=== PATIENT | male | born 1980 | race Caucasian/White ===

== ENCOUNTER 2018-08-30 12:13 | Emergency (ER) | payer MEDICAID, SELFPAY ==
[2018-08-30 12:20] VITALS: BP 128/85; PULSE 62; RESP 20; TEMP 37; O2SAT 96
--- NOTE | 2018-08-30 12:34 | ED.GENADUL_ITS ---
Discharge Plan Disposition Patient Disposition: HOME Condition: Improving Discharge Details Chief Complaint: AnimalBite Clinical Impression: Tick bite Primary Care Provider: Daniele Martinez ED Provider: Jesus Hannah Home Meds and New Rx's Prescriptions: New doxycycline hyclate 100 mg capsule 100 mg PO BID 10 Days Qty: 20 RF: 0 Continued Buprenorphine/Naloxone [Suboxone 12 MG-3 MG SL FILM] 1 EACH Film 16 mg Sublingual DAILY RF: 0 ibuprofen 600 MG tablet 600 mg PO Q8H PRNQty: 15 RF: 0 dexmethylphenidate [Focalin] 10 mg Tablet 40 DAILY RF: 0 Discharge Instructions Instructions: Tick Bite (ED) Additional Instructions: Resume routine care and daily soap and water cleansing. Please take doxycycline as prescribed for 10 days time. Return for any acute concern Medical Decision Making 38-year-old male presents with an engorged tick on his right scrotum that he believes was present since yesterday. He is otherwise well-appearing in no acute distress. Tick removed. Will place on doxycycline. He is stable for discharge home at this time HPI General Mode of arrival: ambulatory . Date/Time Provider Initiated Documentation: 08/30/18 12:15 . Limitations to Documentation: no limitations . Information obtained by: patient . History of Present Illness 38 year old M presents to the emergency department with the chief complaint of Right testicular tic with engorgement x1 day, described as moderate, Quality is described as dull, and is localized to the genitals and right. Patient reports no radiation. Patient started experiencing this hour(s) and it has been constant. No relieving factors improve symptom(s), Patient notes no other symptoms.. Patient did receive the following treatments prior to arrival, none Related Data Home Medications Medication Instructions Recorded Confirmed Buprenorphine/Naloxone [Suboxone 16 mg SUBLINGUAL DAILY 04/06/17 08/30/18 12 MG-3 MG SL FILM] ibuprofen 600 mg PO Q8H PRN #15 tab 11/26/17 08/30/18 dexmethylphenidate [Focalin] 40 DAILY 08/30/18 doxycycline hyclate 100 mg PO BID 10 Days #20 cap 08/30/18 Previous Rx's Medication Instructions Recorded ibuprofen 600 mg PO Q8H PRN #15 tab 11/26/17 doxycycline hyclate 100 mg PO BID 10 Days #20 cap 08/30/18 Allergies Allergy/AdvReac Type Severity Reaction Status Date / Time venom-honey bee Allergy Severe Anaphylaxsi Unverified 04/06/17 16:17 [bee venom (honey bee)] s General Stated Complaint: AnimalBite CAMILA: 4 Review of Systems Review of Systems 6 systems reviewed and otherwise neg [facility] Social History Smoking/Tobacco Use Status: Current every day Drug use: Occasionally Do you feel safe in your relationship?: Yes Exam Narrative Exam Narrative: GEN: awake, alert, oriented 3. Pleasant, well groomed, interactive. HEAD: Normocephalic, atraumatic : Unremarkable testicular exam. There is an engorged tick present on the lower portion of the right scrotum. EXT: Full ROM, no edema, no rash Neuro: Grossly normal neurologic exam, conversant, interactive. Psych: Speech fluent, thoughts congruent, affect normal Course Vital Signs Temperature 37.0 C 08/30/18 12:20 Pulse 62 08/30/18 12:20 Respiratory Rate 20 08/30/18 12:20 Blood Pressure 128/85 08/30/18 12:20 Pulse Oximetry 96 08/30/18 12:20 Temperature 37.0 C 08/30/18 12:20 Pulse 62 08/30/18 12:20 Respiratory Rate 20 08/30/18 12:20 Blood Pressure 128/85 08/30/18 12:20 Blood Pressure Position Sitting 08/30/18 12:20 Pulse Oximetry 96 08/30/18 12:20 Oxygen Delivery Method Room Air 08/30/18 12:20 Oxygen Flow Rate 0 08/30/18 12:20
== END 2018-08-30 12:46 | disposition home or self-care (01) ==
PROVIDERS: Emergency Provider Emergency Medicine; PCP General Practice
DX: S30.863A Insect bite (nonvenomous) of scrotum and testes, initial encounter (principal); W57.XXXA Bitten or stung by nonvenomous insect and other nonvenomous arthropods, initial encounter
CPT/HCPCS: 99283

== ENCOUNTER 2019-07-01 12:55 | Emergency (ER) | payer MEDICAID, SELFPAY ==
--- NOTE | 2019-07-01 13:00 | DI.RAD_ITS ---
EXAM: XR WRIST RT COMPLETE INDICATION: Pinned between crowbar and engine block. COMPARISON: No exams were available for comparison TECHNIQUE: 2D digital imaging was performed. FINDINGS: No fracture or dislocation is seen. IMPRESSION: Negative right wrist. DATA REPOSITORY: RADIATION DOSE DELIVERED:
[2019-07-01 13:01] VITALS: BP 123/97; PULSE 71; RESP 16; TEMP 36.7; O2SAT 97
--- NOTE | 2019-07-01 13:37 | ED.GENADUL_ITS ---
Discharge Plan Disposition Patient Disposition: HOME Condition: Stable Discharge Details Chief Complaint: Orthopedic Clinical Impression: Injury of wrist Primary Care Provider: None,None ED Provider: Lee Childs Home Meds and New Rx's Prescriptions: Continued Buprenorphine/Naloxone [Suboxone 12 MG-3 MG SL FILM] 1 EACH Film 16 mg Sublingual DAILY RF: 0 ibuprofen 600 MG tablet 600 mg PO Q8H PRNQty: 15 RF: 0 dexmethylphenidate [Focalin] 10 mg Tablet 40 DAILY RF: 0 Discharge Instructions Instructions: Wrist Injury (ED) Additional Instructions: X-ray is negative. Rest, elevate, cool compresses every 2 hours for 20 minutes. [id number] medications as directed for discomfort. Wear splint as needed, advance activity as tolerated. Please watch for new or worsening symptoms and return to the ER for any concerns. I do recommend reaching out to your primary care provider later today or tomorrow for prompt outpatient reevaluation, if symptoms persist outpatient referral to orthopedics may be indicated Medical Decision Making Patient with focal right wrist injury. Appears well, nontoxic, no acute distress. No deformity. Neuro, vascular, tendon intact. Will obtain x-ray and reassess. No evidence of compartment syndrome X-ray unremarkable. Discussed with patient. Discussed treatment options. Premade splint applied. Discussed rest, elevate, cool compresses, [id number] Tylenol and/or Motrin Medical Records Medical records reviewed: Yes I reviewed the patient's medical records. Imaging Data Radiologic Study: Attestation: I personally reviewed and interpreted this imaging study as follows: Imaging: X-Ray My impression: Right wrist negative HPI General Mode of arrival: ambulatory . Date/Time Provider Initiated Documentation: 07/01/19 13:08 . Limitations to Documentation: no limitations . Information obtained by: patient . HPI Narrative: 39-year-old gentleman who reports being a [id number] after having an accident to his left hand several years ago presents with right wrist injury. He reports that he was working on a car, a pry bar slipped and struck his wrist pinning it to the engine block. He reports moderate-severe pain, intermittent tingling although improving, no weakness or numbness. Patient denies any other injuries. Patient reports that he is on Suboxone, but otherwise has no significant past medical history. Related Data Home Medications Medication Instructions Recorded Confirmed Buprenorphine/Naloxone [Suboxone 16 mg SUBLINGUAL DAILY 04/06/17 07/01/19 12 MG-3 MG SL FILM] ibuprofen 600 mg PO Q8H PRN #15 tab 11/26/17 07/01/19 dexmethylphenidate [Focalin] 40 DAILY 08/30/18 Previous Rx's Medication Instructions Recorded ibuprofen 600 mg PO Q8H PRN #15 tab 11/26/17 Allergies Allergy/AdvReac Type Severity Reaction Status Date / Time venom-honey bee Allergy Severe Anaphylaxsi Unverified 07/01/19 13:05 [bee venom (honey bee)] s General Stated Complaint: Orthopedic CAMILA: 4 Review of Systems Cardiovascular Cardiovascular: Denies chest pain Gastrointestinal Gastrointestinal: Denies nausea Musculoskeletal Musculoskeletal: Denies muscle weakness, Denies numbness and Reports tingling Integumentary/Breasts Skin/Breast: Denies rash Neurologic Neurologic: Denies numbness and Reports tingling PFSH Social History Smoking/Tobacco Use Status: Current every day Tobacco Type: cigarettes Years smoked: 30 Alcohol Intake: never Drug use: Daily Substance use type: marijuana Do you feel safe at home: Yes Do you feel safe in your relationship?: Yes Exam Const General: cooperative, healthy appearing, comfortable and no acute distress Orientation: alert and awake HENMA Head: normal to inspection, normocephalic and atraumatic Mouth: moist mucous membranes Eyes Conjunctivae: conjunctivae normal Neck Neck: normal visual inspection, trachea midline and supple Resp Effort & Inspection: normal respiratory effort and able to speak in complete sentences Cardio Rate: regular rate Rhythm: regular rhythm Skin General skin exam: no rashes or lesions noted Trauma: abrasion (Dorsal aspect of right wrist) Neuro General: alert, awake, moves all extremities and no focal motor deficits Motor: muscle tone normal throughout and strength 5/5 throughout Sensory Exam: no sensory deficits noted Extrem Right upper extremity: wrist Details: tenderness (Diffusely), swelling (Minimally dorsally), abnormal ROM (Decreased right wrist range of motion secondary to discomfort), abrasion (As documented above), normal vascular exam, radial pulse present and ulnar pulse present; no deformity Left upper extremity: hand Details: normal to inspection, normal capillary refill, neuromotor exam normal, neurosensory exam normal, tendon exam normal, tenderness (Minimally dorsally diffusely) and vascular exam Details: radial pulse present and normal capillary refill Psych Appearance: grossly normal Mental Status: mental status grossly normal Course Vital Signs Vital signs: Vital Signs Temperature 36.7 C 07/01/19 13:01 Pulse 71 07/01/19 13:01 Respiratory Rate 16 07/01/19 13:01 Blood Pressure 123/97 H 07/01/19 13:01 Pulse Oximetry 97 07/01/19 13:01 Temperature 36.7 C 07/01/19 13:01 Temperature Source Skin 07/01/19 13:01 Pulse 71 07/01/19 13:01 Respiratory Rate 16 07/01/19 13:01 Respiratory Effort Non-Labored 07/01/19 13:01 Blood Pressure 123/97 H 07/01/19 13:01 Blood Pressure Position Sitting 07/01/19 13:01 Pulse Oximetry 97 07/01/19 13:01 Oxygen Delivery Method Room Air 07/01/19 13:01 Oxygen Flow Rate 0 07/01/19 13:01 Pain Level 7 07/01/19 13:01
[2019-07-01 14:20] VITALS: BP 123/97; PULSE 71; RESP 16; TEMP 36.7; O2SAT 97
== END 2019-07-01 13:49 | disposition home or self-care (01) ==
LOC: ER 13:53
PROVIDERS: Emergency Provider Physician Assistant
DX: S67.41XA Crushing injury of right wrist and hand, initial encounter (principal); R20.2 Paresthesia of skin; W23.0XXA Caught, crushed, jammed, or pinched between moving objects, initial encounter
CPT/HCPCS: 29125; 99283; 73110; L3908

== ENCOUNTER 2019-10-15 13:30 | Emergency (ER) | payer MEDICAID, SELFPAY ==
[2019-10-15 13:35] VITALS: BP 172/105; PULSE 95; RESP 24; TEMP 36.6; O2SAT 97
--- NOTE | 2019-10-15 14:18 | W.ED.GENAD ---
Discharge Plan Disposition Patient Disposition: HOME Condition: Stable Discharge Details Chief Complaint: Laceration Clinical Impression: Dog bite Primary Care Provider: None,None ED Provider: Dalila Coates Home Meds and New Rx's Prescriptions: New amoxicillin-pot clavulanate [Augmentin] 875-125 mg tablet 1 tab PO BID Qty: 20 RF: 0 No Action Buprenorphine/Naloxone [Suboxone 12 MG-3 MG SL FILM] 1 EACH Film 16 mg Sublingual DAILY RF: 0 ibuprofen 600 MG tablet 600 mg PO Q8H PRNQty: 15 RF: 0 dexmethylphenidate [Focalin] 10 mg Tablet 40 PO DAILY RF: 0 Discharge Instructions Instructions: Animal Bite (ED) Additional Instructions: Use [id number] pain reliever for discomfort and swelling if needed. Use antibiotic as prescribed. Please talk to your Suboxone clinic regarding the possibility of splitting your Suboxone dose for pain relief. Today is day 0, tomorrow day 1. You will require rabies vaccines on day 3, 7 and 14 Observe for any signs of infection. For redness, increased swelling, increasing pain, drainage or for any signs of infection have immediate reevaluation in the emergency room despite use of antibiotics Suture removal in 10 to 14 days. He received tetanus vaccine today. Return for any worsening, concerns or alarming symptoms sooner if needed Medical Decision Making <YELITZA Chavez - Last Filed: 10/15/19 15:29> This is a 39-year-old patient presenting the emergency room for thigh laceration. Patient sustained a 5 cm laceration with additional abrasions to the right thigh. Deep extension into the subcutaneous. No obvious vascular injury. Patient does describe some decreased sensation distal to his wound by approximately 10 cm. Patient is aware of sensation of the site however somewhat diminished. Patient has distal sensation intact beyond the knee. No foot drop. Pain with straight leg raise however straight leg raise is intact. Patient did receive rabies vaccines as a child but questions whether he actually received the entire course of vaccination schedule. Patient provided Augmentin in the ER. Tetanus vaccines ordered, rabies immunoglobulin as well as initial vaccine to restart rabies schedule started. Patient's wound cleaned extensively and irrigated. Patient tolerated wound closure without difficulty. Large laceration closed with 8 sutures. A small skin avulsion repaired with Steri-Strips. Plan to provide Papito wrap as well as crutches for ambulation. Recommended PCP recheck this week. Care discussed. Signs of infection discussed. Recommendation of antibiotic discussed. Patient currently taking Suboxone. I did discuss the possibility of splitting his Suboxone dosage. Patient will discuss this with the [facility] clinic who provides his medication The patient was stable and requested discharge. Prior to discharge, my usual and customary return precautions were reviewed with the patient - this included follow-up instructions and reasons to return to the Emergency Department if conditions worsens, does not improve as expected, or other new concerns arise. <Abhi Smith MD - Last Filed: 10/15/19 14:38> I had a urtb-gr-anhy encounter with the patient. I evaluated the patient. I discussed case with CONTAINER SHOP WELDER/PA and I reviewed CONTAINER SHOP WELDER/PA note and agree with note as documented HPI <YELITZA Chavez - Last Filed: 10/15/19 15:29> General Date/Time Provider Initiated Documentation: 10/15/19 13:41. HPI Narrative: This is a 39-year-old patient presenting to the emergency room after a dog bite to the right thigh. Patient sustained dog bite while at home, neighbors dog was left with slack on his leash and dog approached the patient unprovoked and bit his right thigh several times. Patient sustained a moderately sized right thigh laceration. Patient reports moderate pain at the site. Patient was bleeding controlled. Patient reports mild local numbness to the anterior thigh. Patient denies any numbness extending beyond the knee. Patient's tetanus is unknown. Dog's rabies not up-to-date. Patient does report he received a full course of rabies vaccines when he was 8 years old. Patient denies any other sites of pain or injuries. Related Data Home Medications Medication Instructions Recorded Confirmed Buprenorphine/Naloxone [Suboxone 16 mg SUBLINGUAL DAILY 04/06/17 10/15/19 12 MG-3 MG SL FILM] ibuprofen 600 mg PO Q8H PRN #15 tab 11/26/17 07/01/19 dexmethylphenidate [Focalin] 40 PO DAILY 08/30/18 amoxicillin-pot clavulanate 1 tab PO BID #20 tab 10/15/19 [Augmentin] Previous Rx's Medication Instructions Recorded ibuprofen 600 mg PO Q8H PRN #15 tab 11/26/17 amoxicillin-pot clavulanate 1 tab PO BID #20 tab 10/15/19 [Augmentin] Allergies Allergy/AdvReac Type Severity Reaction Status Date / Time venom-honey bee Allergy Severe Anaphylaxsi Unverified 07/01/19 13:05 [bee venom (honey bee)] s General Stated Complaint: Laceration CAMILA: 4 Review of Systems <YELITZA Chavez - Last Filed: 10/15/19 15:29> All systems reviewed & are unremarkable except as noted in HPI and below Constitutional Constitutional: Denies chills, Denies fatigue, Denies fever(s) and Denies headache(s) ENT Ears, Nose, Mouth, and Throat: Denies headache(s) Musculoskeletal Musculoskeletal: Reports abnormal gait (Limping gait), Denies deformity, Reports numbness (Anterior thigh) and Denies tingling Integumentary/Breasts Skin/Breast: Reports skin pain and Reports wounds Neurologic Neurologic: Reports abnormal gait (Limping gait), Denies headache(s), Reports numbness (Anterior thigh) and Denies tingling Endocrine Endocrine: Denies fatigue PFSH <YELITZA Chavez - Last Filed: 10/15/19 15:29> Social History Smoking/Tobacco Use Status: Current every day Tobacco Type: cigarettes Years smoked: 30 Alcohol Intake: never Drug use: Daily Substance use type: marijuana Do you feel safe at home: Yes Do you feel safe in your relationship?: Yes Exam <YELITZA Chavez - Last Filed: 10/15/19 15:29> Narrative Exam Narrative: CONST: Healthy appearing patient, in no acute distress. Well hydrated. Alert and oriented. HENMT: Head nomocephalic, normal to inspection. Atraumatic. Hearing grossly normal. EYES: General normal appearance. Alignment normal. Eyelids normal. Conjunctiva normal. NECK: Normal visual inspection. FROM. Trachea midline. No Midline tenderness. CHEST: Normal insepection of the chest. RESP: Normal respiratory effort. Speaking full sentences. No cough. No audible wheezing. No retractions. CARDIO: No JVD. MUSCULOSKELETAL: Limping gait. Patient sustained a 5 cm laceration with deep extension into the subcutaneous. Oblique shaped laceration. Pain with straight leg raise. Patient is able to straight leg raise. Patient does have mild decrease sensation just distal to the laceration however the remainder of his leg sensation remains intact. Distal sensation intact. No significant bleeding. SKIN: Normal. Dry. No rashes. NEURO: Alert and awake. Speech clear. PSYCH: Normal affect. Cooperative. Course <YELITZA Chavez - Last Filed: 10/15/19 15:29> Vital Signs Vital signs: Vital Signs Temperature 36.6 C 10/15/19 13:35 Pulse 95 H 10/15/19 13:35 Respiratory Rate 24 10/15/19 13:35 Blood Pressure 172/105 H 10/15/19 13:35 Pulse Oximetry 97 10/15/19 13:35 Temperature 36.6 C 10/15/19 13:35 Temperature Source Temporal Artery Scan 10/15/19 13:35 Pulse 95 H 10/15/19 13:35 Respiratory Rate 24 10/15/19 13:35 Respiratory Effort 10/15/19 13:40 Blood Pressure 172/105 H 10/15/19 13:35 Blood Pressure Position Sitting 10/15/19 13:35 Pulse Oximetry 97 10/15/19 13:35 Pain Level 9 10/15/19 13:35 Procedures <YELITZA Chavez - Last Filed: 10/15/19 15:29> Laceration Laceration 1: Site: lower extremity (Right thigh) Side (If applicable): right Size (cm): 5 Description: irregular Depth: simple, single layer Local Anesthetic: Lidocaine 1% and with Epi Amount of anesthesia used (mL): 10 Pre-repair: wound explored and irrigated extensively Skin layer closed with: other (prolene) Size (cm): 4-0 Number of sutures: 8 Technique: simple, interrupted and horizontal mattress
[2019-10-15] MEDS: Amoxicillin 875/Clav. 125 TAB PO (14:39)
[2019-10-15 15:31] VITALS: BP 146/88; PULSE 79; RESP 18; TEMP 36.8; O2SAT 95
[2019-10-15] MEDS: Acetaminophen 500 MG TAB 1000 MG PO (15:49)
[2019-10-15] MEDS: Rabies Immune Globulin 300 UNIT/ML VIAL 1451.5 UNIT IM (15:49)
== END 2019-10-15 15:52 | disposition home or self-care (01) ==
PROVIDERS: Emergency Provider Physician Assistant
DX: S71.151A Open bite, right thigh, initial encounter (principal); R20.0 Anesthesia of skin; W54.0XXA Bitten by dog, initial encounter
CPT/HCPCS: 12002; 90471; 96372; 99284; 90675; 99281

== ENCOUNTER 2019-10-30 01:59 | Outpatient (RCR) | payer MEDICAID, SELFPAY | END 2019-11-02 23:59 | disposition home or self-care (01) | LOC: INF 01:59 | PROVIDERS: Visit Provider Physician Assistant | DX: Z20.3 Contact with and (suspected) exposure to rabies (principal) | CPT/HCPCS: 90471; 96372; 90675 ==

== ENCOUNTER 2019-12-11 22:54 | Emergency (ER) | payer MEDICAID, SELFPAY ==
[2019-12-11 22:58] VITALS: BP 163/103; PULSE 105; RESP 12; TEMP 36.7; O2SAT 97
--- NOTE | 2019-12-11 23:00 | DI.RAD_ITS ---
EXAM: XR KNEE LT 3V AP,LAT,NAUN CLINICAL HISTORY: anterior knee pain. TECHNIQUE: 2D digital imaging was performed. COMPARISON: CR CHEST 2 VIEWS PA,LAT from 05/30/2015 FINDINGS: BONES: No acute fracture is present. No bony destructive lesion is seen. Postsurgical changes are pr esent in the distal femur and proximal tibia. JOINTS: The knee is normally aligned. No joint effusion is seen. SOFT TISSUE: Normal. IMPRESSION: No acute abnormality. DATA REPOSITORY: RADIATION DOSE DELIVERED:
--- NOTE | 2019-12-11 23:08 | W.ED.GENAD ---
Discharge Plan Disposition Patient Disposition: HOME Condition: Stable Discharge Details Chief Complaint: Orthopedic Clinical Impression: Knee pain, left Primary Care Provider: None,None ED Provider: Abhi Smith Home Meds and New Rx's Prescriptions: Continued Buprenorphine/Naloxone [Suboxone 12 MG-3 MG SL FILM] 1 EACH Film 16 mg Sublingual DAILY RF: 0 ibuprofen 600 MG tablet 600 mg PO Q8H PRNQty: 15 RF: 0 dexmethylphenidate [Focalin] 10 mg Tablet 40 PO DAILY RF: 0 amoxicillin-pot clavulanate [Augmentin] 875-125 mg tablet 1 tab PO BID Qty: 20 RF: 0 Discharge Instructions Instructions: Knee Pain (ED) Additional Instructions: call orthopedics for an outpatient appointment for follow up if you develop fevers, the knee becomes hot to touch and red or severe worsening pain return to the emergency department Referrals: Devon Cox MD [ [facility] STAFF PHYSICIAN] - Medical Decision Making 39 yo male who has had a prior acl repair in the past comes in after he bent down to look at his significant other's phone and felt pain in the left knee. Denies trauma, head trauma, loc. HAs had this happen before and thinks it is a knee dislocation. His knee appears the same as the right knee. There is no swelling or visible deformity. He has pain with palpation to the right anterior knee, is able to flex and extend with pain however. No leg swelling, rashes, no calf pain, normal distal pulses and sensation. Could have had a patella dislocation that self reduced, will obtain xrays to eval for bony pathology and monitor. No findings to suggest septic joint xray unremarkable, states his knee popped back in at xray despite it looking the same on exam and xray negative. Will place in hinged knee brace and crutches, advised f/u with ortho and return precautions given Differential Diagnosis Differential Diagnosis: arthritis, meniscus injury, fracture Medical Records Medical records reviewed: Yes I reviewed the patient's medical records. Imaging Data Radiologic Study: Attestation: I personally reviewed and interpreted this imaging study as follows: Imaging: X-Ray Radiologist's impression: IMPRESSION: Stable postsurgical changes of the knee. HPI General Date/Time Provider Initiated Documentation: 12/11/19 22:54. Limitations to Documentation: no limitations. Information obtained by: patient. History of Present Illness 39 year old M presents to the emergency department with the chief complaint of left knee pain, described as moderate, and it has been constant. No relieving factors improve symptom(s), No exacerbating factors reported . Related Data Home Medications Medication Instructions Recorded Confirmed Buprenorphine/Naloxone [Suboxone 16 mg SUBLINGUAL DAILY 04/06/17 10/15/19 12 MG-3 MG SL FILM] ibuprofen 600 mg PO Q8H PRN #15 tab 11/26/17 07/01/19 dexmethylphenidate [Focalin] 40 PO DAILY 08/30/18 amoxicillin-pot clavulanate 1 tab PO BID #20 tab 10/15/19 [Augmentin] Previous Rx's Medication Instructions Recorded ibuprofen 600 mg PO Q8H PRN #15 tab 11/26/17 amoxicillin-pot clavulanate 1 tab PO BID #20 tab 10/15/19 [Augmentin] Allergies Allergy/AdvReac Type Severity Reaction Status Date / Time venom-honey bee Allergy Severe Anaphylaxsi Unverified 12/11/19 23:02 [bee venom (honey bee)] s General Stated Complaint: Orthopedic CAMILA: 3 Review of Systems All systems reviewed & are unremarkable except as noted in HPI and below Constitutional Constitutional: Denies chills, Denies fever(s) and Denies weakness Cardiovascular Cardiovascular: Denies chest pain and Denies dyspnea Respiratory Respiratory: Denies cough and Denies dyspnea Gastrointestinal Gastrointestinal: Denies abdominal pain, Denies nausea and Denies vomiting Musculoskeletal Musculoskeletal: Denies joint swelling Neurologic Neurologic: Denies weakness Psychiatric Psychiatric: Denies depression [facility] Social History Smoking/Tobacco Use Status: Current every day Tobacco Type: cigarettes Years smoked: 30 Alcohol Intake: never Drug use: Daily Substance use type: marijuana Do you feel safe at home: Yes Do you feel safe in your relationship?: Yes Exam Const General: no acute distress Orientation: alert HENMT Head: normal to inspection Ears: external ears normal General nose exam: external nose normal Mouth: moist mucous membranes Eyes General: appearance normal, both eyes and all related structures Neck Neck: normal visual inspection Resp Effort & Inspection: normal respiratory effort and able to speak in complete sentences Cardio Rate: regular rate Skin General skin exam: no rashes or lesions noted Neuro General: patient alert and patient oriented x3 Extrem General: capillary refill normal Psych Mental Status: mental status grossly normal Course Vital Signs Vital signs: Vital Signs Temperature 36.7 C 12/11/19 22:58 Pulse 105 H 12/11/19 22:58 Respiratory Rate 12 12/11/19 22:58 Blood Pressure 163/103 H 12/11/19 22:58 Pulse Oximetry 97 12/11/19 22:58 Temperature 36.7 C 12/11/19 22:58 Temperature Source Tympanic 12/11/19 22:58 Pulse 105 H 12/11/19 22:58 Respiratory Rate 12 12/11/19 22:58 Respiratory Effort Non-Labored 12/11/19 23:01 Blood Pressure 163/103 H 12/11/19 22:58 Blood Pressure Position Sitting 12/11/19 22:58 Pulse Oximetry 97 12/11/19 22:58 Oxygen Delivery Method Room Air 12/11/19 22:58 Oxygen Flow Rate 0 12/11/19 22:58 Pain Level 7 12/11/19 23:03
--- NOTE | 2019-12-11 23:43 | DI.VRAD_ITS ---
PROCEDURE INFORMATION: Exam: XR Left Knee Exam date and time: 12/11/2019 11:30 PM Age: 39 years old Clinical indication: Other: Anterior knee pain TECHNIQUE: Imaging protocol: XR Left knee. Views: 3 views. COMPARISON: CR LEFT KNEE 3 VIEW COMPLETE 25/11/2017 23:31 FINDINGS: Bones/joints: Postsurgical changes of the knee. No fracture or dislocation. No joint effusion. Soft tissues: Unremarkable. IMPRESSION: Stable postsurgical changes of the knee. Dictated and Authenticated by: Carolina Serrano MD. Ordering:ERNESTO Moe MD
[2019-12-12] MEDS: Acetaminophen 500 MG TAB 1000 MG PO (00:05)
== END 2019-12-12 00:05 | disposition home or self-care (01) ==
PROVIDERS: Emergency Provider Emergency Medicine
DX: M25.562 Pain in left knee (principal)
CPT/HCPCS: 29505; 73562; 99283; E0114; L1830

== ENCOUNTER 2021-02-06 16:10 | Outpatient (REF) | payer MEDICAID, SELFPAY ==
[2021-02-08 11:30] LABS: COVID-19 RT-PCR UVMMC Result Negative (Negative)
== END 2021-02-06 16:11 | disposition home or self-care (01) ==
LOC: LBN 16:10
PROVIDERS: Visit Provider Physician Assistant Medical
DX: Z20.822 Contact with and (suspected) exposure to COVID-19 (principal); J06.9 Acute upper respiratory infection, unspecified
CPT/HCPCS: U0003

== ENCOUNTER 2021-08-10 00:38 | Emergency (ER) | payer OTHER, SELFPAY ==
[2021-08-10] VITALS (12 sets, daily range): BP systolic 171–193; BP diastolic 101–121; PULSE 71–94; RESP 18–33; TEMP 36.9; O2SAT 97–99
--- NOTE | 2021-08-10 00:30 | DI.CT_ITS ---
Exam(s) CT HEAD WO EXAM: CT HEAD WO CLINICAL HISTORY: mental status change. TECHNIQUE: Imaging Protocol: Axial computed tomography images with coronal and sagittal reformatted images were created and reviewed COMPARISON: CT CERVICAL SPINE WITHOUT CONTRA from 11/09/2014 FINDINGS: There are no skull fractures nor fluid in the visualized paranasal sinuses. There is no evidence of intracranial hemorrhage, mass effect, or shift of midline structures. There are no extra-axial fluid collections. The ventricles are not enlarged or shifted and there is no blo od within the ventricular system nor within the basal cisterns. IMPRESSION: No acute intracranial findings on this noninfused CT scan of the brain. RADIATION DOSE DELIVERED: 722.59mGy.cm Total DLP DATA REPOSITORY: All CT scans at this facility are submitted to the National Radiology Data Registry (NRDR) Dose Index Registry (DIR) with the [employer] (ACR). RADIATION OPTIMIZATION: All CT scans at this facility use at least one of these dose optimization te chniques: automated exposure control; mA and/or kV adjustment per patient size (includes targeted exa ms where dose is matched to clinical indication); or iterative reconstruction.
--- NOTE | 2021-08-10 00:30 | DI.CT_ITS ---
Exam(s) CT CHEST/ABD/PEL WO EXAM: CT CHEST/ABD/PEL WO CLINICAL HISTORY: mental status change, report of body packing. TECHNIQUE: Imaging Protocol: Axial computed tomography images with coronal and sagittal reformatted images were created and reviewed CONTRAST MATERIAL: Intravenous: none Oral: None COMPARISON: CT RENAL COLIC WO CONTRAST from 07/27/2015 FINDINGS: CHEST: LUNGS: There are no infiltrates nor pleural effusions. No ominous nodules. No significant focal fin dings in the trachea and mainstem bronchi.. MEDIASTINUM: No obvious hilar nor mediastinal adenopathy. Visualized thyroid unremarkable. CARDIAC: Heart size is normal. There is no pericardial effusion.Caliber of the thoracic aorta is wit hin normal limits. OSSEOUS: No significant osseous lesions.. ABDOMEN: There is no ascites. LIVER: There are no obvious focal hepatic lesions evident of this noninfused study. GALLBLADDER/BILIARY: There is some calcification in the gallbladder wall. Gallbladder is not distend ed. CBD is not dilated. PANCREAS: No evidence of obvious pancreatic mass nor dilatation of the pancreatic duct. SPLEEN: Spleen is not enlarged. No obvious intrasplenic lesions. ADRENALS: There are no significant adrenal masses. 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 No other renal findings. No hydronephrosis nor hydroureter. No obvious calculi nor masses in the urinary bl adder.. No cysts evident. ABDOMINAL AORTA: Abdominal aorta is not enlarged. LYMPH NODES: There is no retroperitoneal nor para-aortic adenopathy. ABDOMINAL WALL/GI: No evidence of significant anterior abdominal wall nor inguinal hernia. Abundant fecal material in the colon. No bowel obstruction. No radiopaque material evident in the b owel lumen. PELVIS: LYMPH NODES: There is no intrapelvic nor inguinal adenopathy. GI: Appendix is difficult to locate. No obvious acute appendicitis.No evidence of sigmoid diverticul itis. URINARY BLADDER: No calculi nor obvious masses evident REPRODUCTIVE: Prostate not enlarged. OSSEOUS: No significant osseous lesions. IMPRESSION: 1. No significant intrathoracic findings. Lungs are clear. No pleural effusions. 2. No acute significant findings in the pelvis. Abundant fecal material in the colon but no radiopaq ue foreign body within bowel lumen. No bowel obstruction. No free air. 3. No ascites. RADIATION DOSE DELIVERED: 1,057.65mGy.cm Total DLP DATA REPOSITORY: All CT scans at this facility are submitted to the National Radiology Data Registry (NRDR) Dose Index Registry (DIR) with the [employer] (ACR). RADIATION OPTIMIZATION: All CT scans at this facility use at least one of these dose optimization te chniques: automated exposure control; mA and/or kV adjustment per patient size (includes targeted exa ms where dose is matched to clinical indication); or iterative reconstruction.
--- NOTE | 2021-08-10 00:30 | RT.EKG_ITS ---
APPROVED REPORT Exam: Resting ECG Reason for Exam: overdose Patient Location: E HR:75 bpm ECG Measurements Heart Rate 75 AXIS NE 127 P 42 QRSd 93 QRS 56 QT 415 T 63 QTc 465 Conclusion Sinus rhythm Consider left ventricular hypertrophy
[2021-08-10] MEDS: Normal Saline 1,000 ML 150 ML IV (00:50)
--- NOTE | 2021-08-10 00:50 | W.ED.GENAD ---
Discharge Plan Disposition Patient Disposition: [facility] Condition: Improving Discharge Details Clinical Impression: Altered mental status Primary Care Provider: None,None ED Provider: Jesus Hannah Home Meds and New Rx's Prescriptions: New cephalexin 500 mg tablet 500 mg PO TID 5 Days Qty: 15 0RF Discontinued Buprenorphine/Naloxone [Suboxone 12 MG-3 MG SL FILM] 1 EACH Film 16 mg Sublingual DAILY 0RF Label Comments: through [facility] amoxicillin-pot clavulanate [Augmentin] 875-125 mg tablet 1 tab PO BID Qty: 20 0RF No Action clonidine HCl 0.1 mg Tablet 0.1 mg PO BID 0RF loperamide 2 mg Tablet 2 mg PO BID PRN PRN0RF hydroxyzine HCl 50 mg Tablet 50 mg PO BID 0RF ibuprofen 600 mg Tablet 600 mg PO BID PRN PRN0RF Discharge Instructions Instructions: Altered Mental Status (ED) Additional Instructions: Your work-up in the emergency department included CAT scan of the head, CAT scan of the chest/abdomen/pelvis. There was no evidence retained foreign body in your GI tract. Your urine today showed evidence of cocaine. You also appear to have a beginning of a urinary tract infection for which we are starting a prescription of Keflex. Next dose will be tomorrow morning. You were given 50 g of charcoal with sorbitol. This will likely produce soft bowel movement. Medical Decision Making 41-year-old male who is brought from the halfway. Patient was booked into the halfway 3 days ago, was reported to have swallowed packets of unknown substance for which he was placed in observation awaiting stool output. This evening officers noted the patient had a decreased level of responsiveness for which EMS was called. Patient brought to the ER. On exam he is somewhat hypertensive approximately 70/100, pulse is in the mid 80s and is oxygenating normally. On rectal exam there is no evidence of retained foreign body. Differential diagnosis includes intentional or unintentional substance ingestion. Patient placed on a laboratory monitor, screening laboratories obtained and he is referred for CT imaging. Laboratories: White blood cell count of 20, hematocrit 51, platelets 376. Chemistries reassuring, troponin negative. Urinalysis with trace leukoesterase, 3-5 white blood cells, bacteria present. Urine drug positive for cocaine. COVID-19/influenza/RSV negative. Scan of the head no findings. Scan of chest/abdomen/pelvis without acute findings. No evidence of foreign material present. See formal report. Consistent with dehydration given mild hemoconcentration, elevated BUN/creatinine, elevated specific gravity of urine. Patient may have early urinary tract infection which I will opt to treat with a course of Keflex. Note of cocaine in the urine and patient may have had possible exposure. No evidence of retained foreign bodies on CT images. He is improving and able to speak and interact staff. Lab Data Lab results reviewed: Yes I reviewed the patient's lab results. Labs: Laboratory Results - last 24 hr 08/10/21 00:51 WBC 20.07 H RBC 5.81 H Hgb 17.1 Hct 51.6 H MCV 88.8 MCH 29.4 MCHC 33.1 RDW 14.2 H Plt Count 376 MPV 10.0 Immature Gran % 0.5 Neutrophils % 86.7 Lymphocytes % 6.8 Monocytes % 5.6 Eosinophils % 0.1 Basophils % 0.3 Nucleated RBC % 0 Absolute Neutrophils 17.40 H Absolute Lymphocytes 1.36 Absolute Monocytes 1.12 H Absolute Eosinophils 0.02 Absolute Basophils 0.06 HPI General Mode of arrival: EMS. Date/Time Provider Initiated Documentation: 08/10/21 01:10. Limitations to Documentation: altered mental status. Information obtained by: EMS. History of Present Illness 41 year old M presents to the emergency department with the chief complaint of Altered mental status at the halfway, question of body packing, described as moderate, Patient started experiencing this hour(s) and it has been constant. improves with No relieving factors improve symptom(s), No exacerbating factors reported . Patient notes other (Constipated). Patient did receive the following treatments prior to arrival, none Related Data Home Medications Medication Instructions Recorded Confirmed cephalexin 500 mg tablet 500 mg PO TID 5 Days #15 tab 08/10/21 clonidine HCl 0.1 mg tablet 0.1 mg PO BID 08/10/21 08/10/21 hydroxyzine HCl 50 mg tablet 50 mg PO BID 08/10/21 08/10/21 ibuprofen 600 mg tablet 600 mg PO BID PRN PRN 08/10/21 08/10/21 loperamide 2 mg tablet 2 mg PO BID PRN PRN 08/10/21 08/10/21 Previous Rx's Medication Instructions Recorded cephalexin 500 mg tablet 500 mg PO TID 5 Days #15 tab 08/10/21 Allergies Allergy/AdvReac Type Severity Reaction Status Date / Time venom-honey bee Allergy Severe Anaphylaxsi Unverified 12/11/19 23:02 [bee venom (honey bee)] s bupropion [From Wellbutrin] AdvReac Unverified 08/10/21 00:48 General Stated Complaint: DrugWithdr/MAT CAMILA: 3 Review of Systems Unobtainable due to mental status PFSH All Active Problems (Updated 08/10/21 @ 02:59 by Jesus Hannah MD) Laceration (Acute) Injury of wrist (Acute) Altered mental status (Acute) Social History Smoking/Tobacco Use Status: Current every day Tobacco Type: cigarettes Years smoked: 30 Smoking risk assessment performed?: Yes Alcohol Intake: never Drug use: Daily Substance use type: marijuana and crack/cocaine Do you feel safe at home: Yes Do you feel safe in your relationship?: Yes Exam Narrative Exam Narrative: GEN: awake, responds to painful stimuli, then able to speak short sentences HEAD: Normocephalic, atraumatic ENT: Mucous membranes moist, oropharynx unremarkable, External ear exam unremarkable EYES: PERRL, EOMI NECK: Full ROM, no LAZARA, no menigismus CHEST/RESP: Nontender, clear to auscultation bilateral, no wheeze/rhonchi/rales CARDIOVASCULAR: RRR, no murmur, rub faye. 2+ Rad pulse bilateral ABDOMEN: Soft, nontender, no mass. +Bowel sounds. Rectal exam with normal rectal tone, no mass or stool present in rectal vault EXT: Full ROM, no edema, no rash Neuro: Grossly normal neurologic exam. Psych: Speech fluent, thoughts congruent, affect normal Course Vital Signs Vital signs: Vital Signs Temperature 36.9 C 08/10/21 00:37 Pulse 88 08/10/21 00:37 Respiratory Rate 18 08/10/21 00:37 Blood Pressure 171/101 H 08/10/21 00:37 Pulse Oximetry 98 08/10/21 00:37 Temperature 36.9 C 08/10/21 00:37 Temperature Source Temporal Artery Scan 08/10/21 00:37 Pulse 88 08/10/21 00:37 Respiratory Rate 18 08/10/21 00:37 Respiratory Effort 08/10/21 00:45 Respiratory Pattern Normal 08/10/21 00:45 Blood Pressure 171/101 H 08/10/21 00:37 Blood Pressure Position Sitting 08/10/21 00:37 Pulse Oximetry 98 08/10/21 00:37 Oxygen Delivery Method Room Air 08/10/21 00:37 Oxygen Flow Rate 0 08/10/21 00:37
[2021-08-10 01:05] LABS: Absolute Basophil Count 0.06 10^3/uL (0.0-0.2); Absolute Eosinophil Count 0.02 10^3/uL (0.0-0.7); Basophils % 0.3; Eosinophils % 0.1; HCT 51.6 % (40.0-50.0); HGB 17.1 g/dL (13.5-17.5); Immature Grans % 0.5; Lymphocytes % 6.8; MCH 29.4 pg (27.0-33.0); MCHC 33.1 % (32.0-36.0); MCV 88.8 fL (80-95); Monocytes % 5.6; Neutrophils % 86.7; Nucleated RBC 0 %; Platelet Count 376 10^3/uL (130-400); RBC 5.81 10^6/uL (4.36-5.78); RDW 14.2 % (11.8-14.1); RDW-SD 45.4 fL; WBC 20.07 10^3/uL (4.4-10.8)
[2021-08-10 01:25] LABS: Absolute Lymphocyte Count 1.36 10^3/uL (1.2-3.4); Absolute Monocyte Count 1.12 10^3/uL (0.1-0.8)
[2021-08-10] MEDS: Lidocaine 2% Viscous 15 ML CUP (01:31)
[2021-08-10] MEDS: Charcoal/Sorbitol 50 GM TUBE PO (01:31)
--- NOTE | 2021-08-10 01:42 | DI.VRAD_ITS ---
PROCEDURE INFORMATION: Exam: CT Head Without Contrast Exam date and time: 08/10/2021 1:00 AM Age: 41 years old Clinical indication: Altered mental status/memory loss; Confusion or disorientation; Additional info: AMS TECHNIQUE: Imaging protocol: Computed tomography of the head without contrast. Radiation optimization: All CT scans at this facility use at least one of these dose optimization techniques: automated exposure control; mA and/or kV adjustment per patient size (includes targeted exams where dose is matched to clinical indication); or iterative reconstruction. COMPARISON: CT CERVICAL SPINE WITHOUT CONTRA 11/09/2014 11:52 PM FINDINGS: Brain: Normal. No hemorrhage. Unremarkable white matter. No mass effect. Cerebral ventricles: No ventriculomegaly. Paranasal sinuses: Visualized sinuses are unremarkable. No fluid levels. Mastoid air cells: Visualized mastoid air cells are well aerated. Bones/joints: Unremarkable. No acute fracture. Soft tissues: Unremarkable. IMPRESSION: 1. No acute intracranial abnormality. 2. No intracranial hemorrhage. 3. No cerebral edema. 4. No hydrocephaly. Dictated and Authenticated by: Edouard Nicholson MD. Ordering:PABLO Lee MD
[2021-08-10 01:57] LABS: COVID-19 PCR Negative (Negative); Influenza A PCR Negative (Negative); Influenza B PCR Negative (Negative); RSV PCR Negative (Negative)
--- NOTE | 2021-08-10 01:57 | DI.VRAD_ITS ---
PROCEDURE INFORMATION: Exam: CT Chest Without Contrast; Diagnostic Exam date and time: 08/10/2021 1:03 AM Age: 41 years old Clinical indication: Other: AMS, report of body packing TECHNIQUE: Imaging protocol: Diagnostic computed tomography of the chest without contrast. 3D rendering (Not supervised by radiologist): MIP and/or 3D reconstructed images were created by the technologist. Radiation optimization: All CT scans at this facility use at least one of these dose optimization techniques: automated exposure control; mA and/or kV adjustment per patient size (includes targeted exams where dose is matched to clinical indication); or iterative reconstruction. COMPARISON: 1. CR CHEST 2 VIEWS PA,LAT 05/30/2015 8:00 AM 2. CR ABDOMEN FLAT PLATE 11/10/2014 6:28 AM FINDINGS: Lungs: Unremarkable. No consolidation. No masses. Pleural spaces: Unremarkable. No pneumothorax. No pleural effusion. Heart: Unremarkable. No cardiomegaly. No pericardial effusion. No coronary artery atherosclerotic calcium evident. Aorta: Unremarkable. No aortic aneurysm. Lymph nodes: Unremarkable. No enlarged lymph nodes. Bones/joints: Unremarkable. No acute fracture. Soft tissues: Unremarkable. IMPRESSION: 1. No acute findings. 2. No foreign material evident. PROCEDURE INFORMATION: Exam: CT Abdomen And Pelvis Without Contrast Exam date and time: 08/10/2021 1:03 AM Age: 41 years old Clinical indication: Other: AMS, report of body packing TECHNIQUE: Imaging protocol: Computed tomography of the abdomen and pelvis without contrast. 3D rendering (Not supervised by radiologist): MIP and/or 3D reconstructed images were created by the technologist. Radiation optimization: All CT scans at this facility use at least one of these dose optimization techniques: automated exposure control; mA and/or kV adjustment per patient size (includes targeted exams where dose is matched to clinical indication); or iterative reconstruction. COMPARISON: 1. CR CHEST 2 VIEWS PA,LAT 05/30/2015 8:00 AM 2. CR ABDOMEN FLAT PLATE 11/10/2014 6:28 AM FINDINGS: Liver: Normal. No mass. Gallbladder and bile ducts: Small rim like calcification suggested of the gallbladder wall on series 2, image 63. 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 There is also some hyperdense gallbladder contents suggesting milk of calcium bile. . No ductal dilation. Or acute inflammatory features. Pancreas: Normal. No ductal dilation. Spleen: Normal. No splenomegaly. Adrenal glands: Normal. No mass. Kidneys and ureters: Multiple bilateral renal calculi without evidence of acute hydronephrosis or renal inflammation. Stomach and bowel: Unremarkable. No obstruction. No mucosal thickening. Appendix: No evidence of appendicitis. Intraperitoneal space: Unremarkable. No free air. No significant fluid collection. Vasculature: Unremarkable. No abdominal aortic aneurysm. Lymph nodes: Unremarkable. No enlarged lymph nodes. Urinary bladder: Unremarkable as visualized. Reproductive: Unremarkable as visualized. Bones/joints: Unremarkable. No acute fracture. Soft tissues: Unremarkable. IMPRESSION: 1. No acute findings. 2. No intra-abdominal foreign material period no foreign material within the GI tract. 3. Bilateral nonobstructive renal calculi. 4. 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 Minor hyperdense intra gallbladder contents suggesting milk of calcium bile. No acute findings. Dictated and Authenticated by: Edouard Nicholson MD. Ordering:PABLO Lee MD
[2021-08-10 02:14] LABS: Bilirubin Negative (Negative); Blood Moderate (Negative); Clarity Sl Cloudy (Clear); Glucose Negative (Negative); Ketones Negative (Negative); Leukocyte Esterase Trace (Negative); Nitrite Negative (Negative); Specific Gravity >= 1.030 (1.005-1.025); Urobilinogen 0.2 EU/dL (Up TO 0.2); pH 6.5 (5-8)
[2021-08-10 02:22] LABS: Source Nasopharynx
[2021-08-10 02:29] LABS: *AMPHETAMINES SCREEN URINE Negative (Negative); *BARBITURATES SCREEN URINE Negative (Negative); *BENZODIAZEPINES SCREEN URINE Negative (Negative); Cannabinoids THC Negative (Negative); Cocaine Screen,Urine Positive (Negative); METHADONE URINE SCREEN Negative (Negative); OPIATES URINE SCREEN Negative (Negative)
[2021-08-10 02:38] LABS: Tricyclic Antidepressants Negative (Negative)
[2021-08-10 02:49] LABS: Bacteria Rare HPF (Negative); C & S Indicated? No; Crystals Negative HPF (Negative); Epithelial Cells Negative HPF (Negative); Mucus Moderate (Negative); Other Cells Moderate Spermatozoa (Negative); RBC 0-2 HPF (0-2)
[2021-08-10 03:27] LABS: ALT 38 U/L (16-63); AST 26 U/L (15-37); Albumin 4.2 g/dL (3.4-5.0); Alkaline Phosphatase 118 U/L (46-116); BUN 33 mg/dL (7-18); Bilirubin, Total 0.6 mg/dL (0.2-1.0); CREATININE 1.3 mg/dL (0.70-1.30); Calcium 10.4 mg/dL (8.5-10.1); Chloride 101 mmol/L (98-107); Glucose 130 mg/dL (74-106); Magnesium 2.4 mg/dL (1.8-2.4); Potassium 3.7 mmol/L (3.5-5.1); Sodium 142 mmol/L (136-145); Total Protein 9.1 g/dL (6.4-8.2); Troponin I < 50 ng/L (<or=60)
[2021-08-10 03:37] LABS: ETHANOL BLOOD < 3.0 mg/dL (<10)
[2021-08-10 03:46] LABS: Salicylate < 2.8 mg/dL (<2.8)
[2021-08-10 03:47] LABS: Acetaminophen < 2 ug/mL (10-30)
[2021-08-10] MEDS: Cephalexin 500 MG CAP PO (03:48)
== END 2021-08-10 03:53 | disposition home or self-care (01) ==
PROVIDERS: Emergency Provider Emergency Medicine
DX: R41.82 Altered mental status, unspecified (principal); Z20.822 Contact with and (suspected) exposure to COVID-19
CPT/HCPCS: 36415; 71250; 80053; 80307; 87637; 93005; 99284; 70450; 74176; 80320; 80329; 81003; 81015; 83735; 84484; 85025; 93010

== ENCOUNTER 2021-08-10 07:43 | Emergency (ER) | payer OTHER, SELFPAY ==
[2021-08-10] VITALS (94 sets, daily range): BP systolic 146–207; BP diastolic 79–168; PULSE 65–110; RESP 16–34; TEMP 37.1; O2SAT 96–100
--- NOTE | 2021-08-10 08:05 | W.ED.GENAD ---
Discharge Plan Disposition Patient Disposition: [facility] Condition: Serious Discharge Details Clinical Impression: Seizure-like activity, Altered mental status Primary Care Provider: None,None ED Provider: Jerald Omalley Home Meds and New Rx's Prescriptions: No Action clonidine HCl 0.1 mg Tablet 0.1 mg PO BID 0RF hydroxyzine HCl 50 mg Tablet 50 mg PO BID 0RF ibuprofen 600 mg Tablet 600 mg PO BID PRN PRN0RF cephalexin 500 mg tablet 500 mg PO TID 5 Days Qty: 15 0RF Discharge Data Discharge Date/Time-TO BE ENTERED AT DEPARTURE: 08/10/21 16:56 Medical Decision Making 41-year-old male presents to the ER via EMS for the second time in the last 24 hours for reported seizure-like activity which was witnessed tonic-clonic seizure lasting about 2 minutes per report. Patient is incarcerated at a correctional facility has been there in a dry cell since Friday. He was found to have cocaine in his urine drug screen earlier this morning. He had a CT head chest abdomen pelvis which was negative. He reportedly was packing drugs. On initial exam patient is cachectic, moans with verbal stimulus, pupils bilaterally are 3 mm and reactive and equal, weak internet consultant denies any pain, does have a gag reflex. Dry mucous membranes. CT head C-spine ordered due to seizure-like activity. Patient does have small amount of blood in his mouth but no obvious intraoral trauma no obvious signs of trauma. 0829: Call made to the [facility] correctional facility spoke to Geri, to request med administration this am. Has not received Clonidine or hydroxyzine this am. Patient is hypertensive at 197/1 124 heart rate is 82 O2 sat is 99% will attempt to give oral clonidine p.o. Normal saline 1 L wide open ordered. 08 45: Blood pressure 135/75, patient is has been given 1 mg of lorazepam IV he is requesting to have something to drink. Okayed p.o. fluids. At this time CBC is pending, sodium is 140 potassium is 3.3, carbon dioxide is 32.3, BUN is 38 creatinine is 1.4 GFR is 55 which is slightly elevated from previous, glucose 127, calcium 10.2, magnesium 2.5 is also elevated from when seen prior lipase is 133 ethyl alcohol is less than 3.0 salicylate Tylenol pending at this time. 1018: Spoke with Dr. Mulligan hospitalist who recommends transfer to tertiary facility with Neurology, and LP. Due to 2nd seizure. Will consult [facility] after correctional facility talks with fertilizer processing supervisor not sure patient can prostate lines. Also consult with [facility] in [facility]. 1 g ceftriaxone IV piggyback ordered, 1049: [facility] paged for transfer request for stepdown bed for further treatment and neurology eval they will call me back. 1054: [facility] Called for transfer request for step down bed spoke with Marisol. 1123: Spoke with Dr. Bañuelos with Neurology who states that it appears to be alcohol withdrawal seizures and LP and encephalopathy given high suspicion for possible alcohol withdrawal, He does have a history of Hep C. He recommends LP and Keppra 2 gm continue with phenobarbitol. They will get medicine on phone to discuss possible stepdown admit. 1141: Spoke with Dr. Solorzano and Dr. Meehan who recommend LP to rule out menningitis, recommends Vancomycin, and Ceftriaxone LOOPER FIXER dose. They agree to accept patient for admission accepting physician is Dr. Lawson. 1234:Spoke with Dr. Palumbo with [facility] regarding patient, He gave # to office if any questions regarding patient. Patient was given 2.5 mg metoprolol approximately 1240 which did little for BP 1349: CSF shows 170 RBCs, 0 WBCs, 3% lymphocytes, 82 glucose, protein 45, Gram stain shows no white blood cells no bacteria seen. 1435: Patient has received 5 mg of hydralazine IV blood pressure is now 167/98. At this time pending room assignment at [facility]. Discussed patient case and details with oncoming provider Aby Omalley [employer] pending transfer, he verbalizes understanding. 1633-received signout from Delilah Ramos NP. Patient remained stable in emergency department with stabilized blood pressure. No new complaints or seizure activity was noted. [facility] called and did state bed was available and so EMS was contacted for transportation and patient to appropriate medical facility. Patient remained stable throughout emergency department stay with no new seizure-like activity or concerning blood pressure findings. HPI General Mode of arrival: EMS. Date/Time Provider Initiated Documentation: 08/10/21 08:02. Limitations to Documentation: altered mental status. Information obtained by: police, EMS, RN notes reviewed and old records reviewed. HPI Narrative: 41-year-old male presents to the ER via EMS for the second time in the last 24 hours for reported seizure-like activity which was witnessed tonic-clonic seizure lasting about 2 minutes per report. Patient is incarcerated at a correctional facility has been there in a dry cell since Friday. He was found to have cocaine in his urine drug screen earlier this morning. He had a CT head chest abdomen pelvis which was negative. He reportedly was packing drugs. He presents today with altered mental status. No focal neuro deficit noted, he is responsive to verbal he moans no to every question. No focal neuro deficits noted. No obvious signs of trauma. Related Data Home Medications Medication Instructions Recorded Confirmed cephalexin 500 mg tablet 500 mg PO TID 5 Days #15 tab 08/10/21 08/10/21 clonidine HCl 0.1 mg tablet 0.1 mg PO BID 08/10/21 08/10/21 hydroxyzine HCl 50 mg tablet 50 mg PO BID 08/10/21 08/10/21 ibuprofen 600 mg tablet 600 mg PO BID PRN PRN 08/10/21 08/10/21 Previous Rx's Medication Instructions Recorded cephalexin 500 mg tablet 500 mg PO TID 5 Days #15 tab 08/10/21 Allergies Allergy/AdvReac Type Severity Reaction Status Date / Time venom-honey bee Allergy Severe Anaphylaxsi Unverified 08/10/21 07:53 [bee venom (honey bee)] s bupropion [From Wellbutrin] AdvReac Unverified 08/10/21 07:53 General Stated Complaint: Seizure CAMILA: 3 Review of Systems Narrative: ROS obtained by Correctional staff, EMS, and previous medical records Unobtainable due to mental status PFSH All Active Problems (Updated 08/10/21 @ 16:37 by Jerald Omalley NP) Laceration (Acute) Injury of wrist (Acute) Altered mental status (Acute) Seizure-like activity (Acute) Social History Smoking/Tobacco Use Status: Current every day Tobacco Type: cigarettes Years smoked: 30 Smoking risk assessment performed?: Yes Alcohol Intake: current Alcohol Intake frequency: a few times a week Drug use: Occasionally Substance use type: marijuana and crack/cocaine Details: patient has been incarcerated since [place] Do you feel safe at home: Yes Do you feel safe in your relationship?: Yes Exam Const General: not healthy appearing, disheveled, frail appearing (Cachectic), ill appearing acutely and No well hydrated (Dry moucous membranes) Nutritional Appearance: cachectic Orientation: obtunded Limitations: altered mental status [facility] Head: no palpable skull fracture, normocephalic, no Walker's sign, no contusions, no cranial bruits, no hematomas, no lacerations, no occipital foramen tenderness, no raccoon eyes, no scalp lesions and No periorbital ecchymosis Ears: external ears normal General nose exam: external nose normal and no epistaxis (Dried blood right nare) Face and sinus: face symmetric Mouth: moist mucous membranes abnormal, no drooling, mouth trauma (Small amount blood noted, controlled, no tongue laceration) and other Teeth and gingiva: poor dentition Neck Neck: normal visual inspection, trachea midline and no anterior neck swelling Chest Chest: normal inspection of the chest Resp Effort & Inspection: normal respiratory effort, no audible wheezes, no cough, no paradoxical thoraco-abdom movements and no pursed lip breathing Auscultation: diminished lung sounds and no wheezes Cardio Jugular venous pressure: JVD present Rate: regular rate Heart Sounds: S1 normal and S2 normal GI Inspection: normal to inspection Palpation: firm, no hernias and no masses Auscultation: hypoactive bowel sounds Skin General skin exam: no rashes or lesions noted Trauma: no lacerations or abrasions Wounds: no wounds Neuro General: moves all extremities, no focal motor deficits, patient confused, patient obtunded and unable to assess gait Cranial Nerves: PERRL, tongue midline, gag reflex normal and able to rotate head bilaterally Cognition: abnormal cognition Speech: abnormal speech Motor: no tremors and muscle tone abnormal Comatose Patient: corneal reflex present, hand drop from over head - misses face and response to noxious stimuli present Pupils: Normal pupillary reactivity/response: bilateral Course Vital Signs Vital signs: Vital Signs Pulse 94 H 08/10/21 07:44 Respiratory Rate 16 08/10/21 07:44 Blood Pressure 158/120 H 08/10/21 07:44 Pulse Oximetry 98 08/10/21 07:44 Pulse 94 H 08/10/21 07:44 Respiratory Rate 16 08/10/21 07:44 Respiratory Effort 08/10/21 07:54 Respiratory Depth Normal 08/10/21 07:54 Respiratory Pattern Normal 08/10/21 07:54 Blood Pressure 158/120 H 08/10/21 07:44 Blood Pressure Position Supine 08/10/21 07:44 Pulse Oximetry 98 08/10/21 07:44 Oxygen Delivery Method Room Air 08/10/21 07:44 Oxygen Flow Rate 0 08/10/21 07:44 Pain Level 0 08/10/21 07:44 Sign Out Sign Out Data: Sign Out Comment: Tonic-clonic seizure lasting proximately 2 minutes, altered mental status, decreased responsiveness, further evaluation for possible alcoholic encephalopathy. LP performed. Pending [facility] Transfer and bed placement. Accepting DrYazmin At [facility] is Dr. Lawson. Last updated by Delilah Ramos at 08/10/21 15:52 PAWSS Have you Been Recently Intoxicated or Drunk Within the Last 30 days?: Yes Have you Ever Experienced Previous Episodes of Alcohol Withdrawal?: Yes Have you ever Experienced Withdrawal Seizures?: No Have you ever Experienced Delirium Tremens(DT)s?: No Have you ever undergone Alcohol Rehabilitation Treatment (i.e, inpt ot outpatient treatment programs)?: Yes Have you ever Experienced Blackouts?: Yes Have you ever Combined Alcohol with other Downers within the last 90 days?: No Have you ever Combined Alcohol with any other Substance of Abuse during the last 90 days?: No Positive Blood Alcohol level on Presentation? [PCS.BAL]: No Result: 4
--- NOTE | 2021-08-10 08:15 | RT.EKG_ITS ---
APPROVED REPORT Exam: Resting ECG Reason for Exam: AMS Patient Location: E HR:88 bpm ECG Measurements Heart Rate 88 AXIS AK 133 P 64 QRSd 86 QRS 58 QT 396 T 62 QTc 479 Conclusion Sinus rhythm...normal P axis, V-rate 60- 99 Probable left ventricular hypertrophy...multiple LVH criteria. Sinus. No STEMI. I have reviewed and interpreted ECG and agree with software generated interpretation.
--- NOTE | 2021-08-10 08:22 | DI.CT_ITS ---
Exam(s) CT HEAD CERVICAL SPINE WO EXAM: CT HEAD CERVICAL SPINE WO CLINICAL HISTORY: Seizure, AMS. TECHNIQUE: Imaging Protocol: Axial computed tomography images with coronal and sagittal reformatted images were created and reviewed COMPARISON: CT FACIAL WITHOUT CONTRAST from 09/12/2014 CT CERVICAL SPINE WITHOUT CONTRA from 11/09/[address] HEAD WO from 08/10/2021 (last night). FINDINGS: BRAIN: There are no skull fractures nor fluid in the visualized paranasal sinuses. There is no evidence of intracranial hemorrhage, mass effect, or shift of midline structures. There are no extra-axial fluid collections. The ventricles are not enlarged or shifted and there is no blo od within the ventricular system nor within the basal cisterns. CERVICAL SPINE: Again noted is reversal of the cervical curvature. Narrowing of the C5-6 disc space is again noted. There is further narrowing of the posterior aspect of C6-7 disc space when compared to the prior beronica dy. There is no evidence of acute fracture nor listhesis. No significant prevertebral soft tissue swelli ng. There is no significant facet joint malalignment. No significant osseous lesions evident. IMPRESSION: No acute intracranial findings on this noninfused CT scan of the brain. Cervical spine findings as described above, similar with the exception of some further narrowing of t he posterior aspect of the C6-7 disc space. Findings discussed with ER provider RADIATION DOSE DELIVERED: 1,450.08mGy.cm Total DLP DATA REPOSITORY: All CT scans at this facility are submitted to the National Radiology Data Registry (NRDR) Dose Index Registry (DIR) with the [employer] (A[employer]). RADIATION OPTIMIZATION: All CT scans at this facility use at least one of these dose optimization te chniques: automated exposure control; mA and/or kV adjustment per patient size (includes targeted exa ms where dose is matched to clinical indication); or iterative reconstruction.
[2021-08-10 08:36] LABS: Abs Immature Grans 0.14 10^3/uL (0.0-0.06); Absolute Lymphocyte Count 1.33 10^3/uL (1.2-3.4); Basophils % 0.2; HCT 53.6 % (40.0-50.0); HGB 17.6 g/dL (13.5-17.5); Immature Grans % 0.6; Lymphocytes % 6.1; MCH 29.1 pg (27.0-33.0); MCHC 32.8 % (32.0-36.0); MCV 88.6 fL (80-95); MPV 9.8 fL (8.0-11.0); Monocytes % 5.5; Neutrophils % 87.6; Nucleated RBC 0 %; Platelet Count 434 10^3/uL (130-400); RBC 6.05 10^6/uL (4.36-5.78); RDW 14.1 % (11.8-14.1); RDW-SD 45.3 fL; WBC 21.76 10^3/uL (4.4-10.8)
[2021-08-10] MEDS: LORazepam 2 MG/ML VIAL 1 MG IVP (08:39)
[2021-08-10] MEDS: Normal Saline 1,000 ML 1000 ML IV (08:39)
[2021-08-10 08:51] LABS: ALT 39 U/L (16-63); AST 22 U/L (15-37); Albumin 4.2 g/dL (3.4-5.0); Alkaline Phosphatase 115 U/L (46-116); Anion Gap 7.7 mmol/L (3-11); BUN 38 mg/dL (7-18); Bilirubin, Total 0.6 mg/dL (0.2-1.0); CO2 32.3 mmol/L (21.0-32.0); CREATININE 1.4 mg/dL (0.70-1.30); Calcium 10.2 mg/dL (8.5-10.1); Chloride 100 mmol/L (98-107); Estimated GFR 55.58 (mL/min/1.73m2); Glucose 127 mg/dL (74-106); Lipase 133 U/L (73-393); Magnesium 2.5 mg/dL (1.8-2.4); Potassium 3.3 mmol/L (3.5-5.1); Sodium 140 mmol/L (136-145); Total Protein 9.7 g/dL (6.4-8.2)
[2021-08-10 08:52] LABS: ETHANOL BLOOD < 3.0 mg/dL (<10)
[2021-08-10 08:54] LABS: Troponin I < 50 ng/L (<or=60)
[2021-08-10 09:09] LABS: Salicylate < 2.8 mg/dL (<2.8)
[2021-08-10 09:10] LABS: Acetaminophen < 2 ug/mL (10-30)
[2021-08-10 09:24] LABS: Absolute Basophil Count 0.04 10^3/uL (0.0-0.2)
[2021-08-10 09:25] LABS: Absolute Neutrophil Count 19.06 10^3/uL (1.2-6.7); Diff Comment Agrees w/ Instrument; RBC Morphology Normal
[2021-08-10] MEDS: cefTRIAXone 1 GM/50 ML BAG IVPB ×2 (10:35→15:11)
[2021-08-10] MEDS: cloNIDine 0.1 MG TAB PO (10:44)
[2021-08-10 11:39] LABS: Bilirubin Negative (Negative); Blood Small (Negative); Clarity Sl Cloudy (Clear); Glucose Negative (Negative); Ketones Negative (Negative); Leukocyte Esterase Trace (Negative); Nitrite Negative (Negative); Specific Gravity >= 1.030 (1.005-1.025); Urobilinogen 0.2 EU/dL (Up TO 0.2)
[2021-08-10 11:52] LABS: Epithelial Cells Rare HPF (Negative); RBC 0-2 HPF (0-2)
[2021-08-10 11:54] LABS: Bacteria Negative HPF (Negative); C & S Indicated? Yes; Casts Negative LPF (Negative); Crystals Negative HPF (Negative); Mucus Trace (Negative); Other Cells Rare Yeast (Negative)
[2021-08-10 11:57] LABS: *AMPHETAMINES SCREEN URINE Negative (Negative); *BARBITURATES SCREEN URINE Negative (Negative); *BENZODIAZEPINES SCREEN URINE Negative (Negative); Cannabinoids THC Negative (Negative); Cocaine Screen,Urine Positive (Negative); METHADONE URINE SCREEN Negative (Negative); OPIATES URINE SCREEN Negative (Negative)
[2021-08-10 11:59] LABS: Tricyclic Antidepressants Negative (Negative)
--- NOTE | 2021-08-10 12:28 | W.ANESPROC ---
Lumbar Puncture Date Performed: 08/10/21 Procedure Time: 12:20 Requesting Provider: Nicolasa Hua Procedure Location: Emergency Department Standard Monitors Applied: ECG, Blood Pressure, SpO2 and See EMR for corresponding vital signs Patient Position: Left Lateral Decubitus Timeout Performed: No Sedation Given (Indicate Dose Given): No Sedation given Patient Mental Status: Other (AMS, emergency consent) Sterility: Hand Hygiene, Surgical Cap, Surgical Mask, Sterile Gloves, Sterile Drape/Sheet and Betadine Placement Site: L2-L3 Interspace Spinal Needle Type: Hua 22 Gauge Needle Length: 3.5 Inch Lumbar Puncture Procedure: Site Prepped, Sterile Drape Placed, 1% Lidocaine to skin and subcutaneous tissue with 25G needle, Spinal Needle Placed, Negative Heme, Positive CSF Flow, CSF Specimen placed into Tubes in Sequential Order and Specimen Labeled, Sent to Lab Ultrasound: Not Used Paresthesia: None Number of Previous Attempts by Other Providers: 0 Number of Attempts (See previous attempts in note section): 2 Procedure Tolerated: No Complications Procedure Outcome: Successful Performed By: Maddi Camarillo
[2021-08-10] MEDS: levETIRAcetam 2,000 MG in Normal Saline 100 ML 400 MG IVPB (13:01)
--- NOTE | 2021-08-10 13:02 | NUR.NOTE ---
Nursing Note: Care assumed @ 1300, IV candelario. initiated as ordered, no seizure activity noted, C.O. remain in room w/pt. Pt quiet oriented to self & place only, cont. to monitor.
[2021-08-10 13:18] LABS: Troponin I 50 ng/L (<or=60)
[2021-08-10] MEDS: VANCOMYCIN/WATER (PEG) 1.25 GM/250 ML BAG IV (13:21)
[2021-08-10 13:28] LABS: Glucose (CSF) 82 mg/dL (40-70); Total Protein (CSF) 45 mg/dL (15-45)
[2021-08-10 13:32] LABS: Clarity Clear; Tube # 4; WBC 0 /uL (0-5); Xanthochromia Absent
[2021-08-10] MEDS: Metoprolol 5 MG/5 ML VIAL 2.5 MG IVP (13:32)
[2021-08-10 13:33] LABS: Lymphocytes CSF 3 % (40-80); RBC 170 /mm3 (0-5)
[2021-08-10 13:36] LABS: RBC Tube#1 CSF 406 /mm3 (0-5)
[2021-08-10] MEDS: hydrALAZINE 20 MG/ML VIAL 5 MG IVP (14:06)
--- NOTE | 2021-08-10 14:08 | NUR.NOTE ---
Nursing Note:Pt medicated w/hydralazine for BP, pt lying on stretcher with eyes open but not speaking or responding to staff, CO x2 remain in room, continue to monitor.
[2021-08-10] MEDS: Normal Saline 1,000 ML 150 ML IV (14:57)
--- NOTE | 2021-08-10 15:11 | NUR.NOTE ---
Nursing Note: Pt remains quiet, lying on stretcher, eyes open at times, at times appears to be sleeping. Pt not responding when spoken too. 2nd dose of ceftriaxone given at this time, provider aware & states still wants 2nd dose for total dose of 2gms, awaiting transfer to [facility] when bed available, CO's at bedside, cont. to monitor.
[2021-08-10 16:32] LABS: Creatine Kinase 45 U/L (39-308)
--- NOTE | 2021-08-10 16:36 | NUR.NOTE ---
Nursing Note: Pt arousing, request & receive gingerale, room available at [facility], awaiting transport at this time.
[2021-08-11 06:13] LABS: Enterovirus PCR, CSF Negative (Negative)
[2021-08-12 18:29] LABS: Adenovirus PCR Negative (Negative); Specimen Source csf
[2021-08-13 11:27] LABS: HSV 1 PCR Negative (Negative); HSV 2 PCR Negative (Negative); Specimen Source CSF
== END 2021-08-10 16:56 | disposition short-term general hospital (02) ==
PROVIDERS: Registered Nurse Emergency; Emergency Provider Nurse Practitioner Family
DX: R56.9 Unspecified convulsions (principal); R41.82 Altered mental status, unspecified; I10 Essential (primary) hypertension; F14.10 Cocaine abuse, uncomplicated; Z86.19 Personal history of other infectious and parasitic diseases; Z20.822 Contact with and (suspected) exposure to COVID-19
CPT/HCPCS: 80053; 80307; 82550; 82945; 83690; 87498; 87529; 87635; 87798; 89050; 89051; 93005; 96361; 96365; 96366; 96368; 96375; 99285; 70450; 72125; 80320; 80329; 81003; 81015; 83735; 84157; 84484; 85025; 86403; 86592; 87070; 87086; 87205; 87476; 93010; J0360; J0696; J1953; J2060

== ENCOUNTER 2021-08-14 16:33 | Emergency (ER) | payer OTHER, SELFPAY ==
[2021-08-14] VITALS (20 sets, daily range): BP systolic 118–141; BP diastolic 79–98; PULSE 79–105; RESP 12–20; TEMP 36.6; O2SAT 95–98
--- NOTE | 2021-08-14 16:30 | RT.EKG_ITS ---
APPROVED REPORT Exam: Resting ECG Reason for Exam: overdose Patient Location: E HR:94 bpm ECG Measurements Heart Rate 94 AXIS NV 131 P 60 QRSd 83 QRS 50 QT 365 T 49 QTc 456 Conclusion Sinus rhythm...normal P axis, V-rate 60- 99 Probable left atrial enlargement...P >50mS, <-0.10mV V1 ST elev, probable normal early repol pattern...ST elevation, age<55
--- NOTE | 2021-08-14 17:47 | ED.GENADUL_ITS ---
Discharge Plan Disposition [facility] Condition: Stable Discharge Details Clinical Impression: Accidental fentanyl overdose Primary Care Provider: None,None ED Provider: Curtis Molina Home Meds and New Rx's Prescriptions: New naloxone 4 mg/actuation spray,non-aerosol 4 mg intranasal Q2M PRNQty: 1 0RF Rx Instructions: spray 1 dose into ONE nostril; alternate nostrils w each dose until help arrives Continued clonidine HCl 0.1 mg Tablet 0.1 mg PO BID 0RF hydroxyzine HCl 50 mg Tablet 50 mg PO BID 0RF ibuprofen 600 mg Tablet 600 mg PO BID PRN PRN0RF acetaminophen 325 mg Tablet 650 mg PO TID 0RF gabapentin 400 mg Capsule 400 mg PO TID 0RF thiamine HCl (vitamin B1) 100 mg Tablet 100 mg PO QAM 0RF magnesium oxide 400 mg magnesium Tablet 400 mg PO QAM 0RF Discharge Instructions Instructions: Opioid Use Disorder (ED) Additional Instructions: Please do not use opioids or other illicit substances. Please contact your primary care physician to arrange follow-up. Return to the ER immediately for any worsening or new concerning symptoms. Medical Decision Making 175 --41-year-old incarcerated male here after accidental overdose on fentanyl, received naloxone at correctional facility, now mentating well and with no complaint. Plan to observe for 2 hours to ensure no persistent effects of opioid. 1847 --Patient was reassessed and has remained stable. Fingerstick normal. Plan for discharge with outpatient follow-up. HPI General Mode of arrival: EMS . Date/Time Provider Initiated Documentation: 08/14/21 17:15 . Limitations to Documentation: no limitations . Information obtained by: patient . HPI Narrative: 41-year-old male presents from correctional facility after accidental overdose on fentanyl. Patient notes he snorted fentanyl. History limited secondary to altered mental status during episode. Correctional officers found patient unresponsive with decreased respirations. Naloxone intranasal was administered and oxygen was applied and patient then responded. Mentation improved. Patient now has no complaints. Related Data Home Medications Medication Instructions Recorded Confirmed clonidine HCl 0.1 mg tablet 0.1 mg PO BID 08/10/21 08/14/21 hydroxyzine HCl 50 mg tablet 50 mg PO BID 08/10/21 08/14/21 ibuprofen 600 mg tablet 600 mg PO BID PRN PRN 08/10/21 08/14/21 acetaminophen 325 mg tablet 650 mg PO TID 08/14/21 08/14/21 gabapentin 400 mg capsule 400 mg PO TID 08/14/21 08/14/21 magnesium oxide 400 mg PO QAM 08/14/21 08/14/21 naloxone 4 mg/actuation nasal spray 4 mg INTRANASAL Q2M PRN #1 ea 08/14/21 thiamine HCl (vitamin B1) 100 mg 100 mg PO QAM 08/14/21 08/14/21 tablet Previous Rx's Medication Instructions Recorded naloxone 4 mg/actuation nasal spray 4 mg INTRANASAL Q2M PRN #1 ea 08/14/21 Allergies Allergy/AdvReac Type Severity Reaction Status Date / Time venom-honey bee Allergy Severe Anaphylaxsi Unverified 08/10/21 07:53 [bee venom (honey bee)] s bupropion [From Wellbutrin] AdvReac Unverified 08/10/21 07:53 General Stated Complaint: OD/Poison CAMILA: 3 Review of Systems All systems reviewed & are unremarkable except as noted in HPI and below Constitutional Constitutional: Denies fever(s) and Denies weakness Neurologic Neurologic: Denies convulsions, Denies sensory deficit and Denies weakness PFSH All Active Problems (Updated 08/14/21 @ 17:51 by Curtis Molina MD) Laceration (Acute) Injury of wrist (Acute) Altered mental status (Acute) Seizure-like activity (Acute) Accidental fentanyl overdose (Acute) Social History Smoking/Tobacco Use Status: Current every day Tobacco Type: cigarettes Years smoked: 30 Smoking risk assessment performed?: Yes Alcohol Intake: current Alcohol Intake frequency: a few times a week Drug use: Occasionally Substance use type: marijuana, crack/cocaine and other Details: patient has been incarcerated since Friday. Fentanyl used occ. Do you feel safe at home: Yes Do you feel safe in your relationship?: Yes Exam Const General: cooperative and no acute distress HENMT Head: normocephalic and atraumatic Mouth: moist mucous membranes Eyes Conjunctivae: normal conjunctivae Sclera: normal sclerae Neck Neck: trachea midline and supple Resp Auscultation: clear to auscultation bilaterally, no rales, no rhonchi and no wheezes Cardio Rate: regular rate and not tachycardic Rhythm: regular rhythm GI Palpation: soft, not firm, no guarding, no masses, not rigid and nontender Skin General skin exam: no rashes or lesions noted Neuro General: patient alert, patient awake, patient oriented x3 and tone normal Extrem General: no edema Psych Appearance: grossly normal Mental Status: mental status grossly normal Speech and Movement: speech and movement normal Course Vital Signs Vital signs: Vital Signs Temperature 36.6 C 08/14/21 16:33 Pulse 91 H 08/14/21 16:33 Respiratory Rate 17 08/14/21 16:33 Blood Pressure 141/98 H 08/14/21 16:33 Pulse Oximetry 97 08/14/21 16:33 Temperature 36.6 C 08/14/21 16:33 Pulse 105 H 08/14/21 17:16 Pulse 105 H 08/14/21 17:20 Respiratory Rate 17 08/14/21 17:20 Respiratory Effort 08/14/21 16:41 Respiratory Depth Normal 08/14/21 16:38 Respiratory Pattern Normal 08/14/21 16:38 Blood Pressure 130/90 08/14/21 17:16 Blood Pressure Mean 96 08/14/21 17:16 Blood Pressure Position Supine 08/14/21 16:33 Pulse Oximetry 97 08/14/21 17:20 Oxygen Delivery Method Room Air 08/14/21 16:33 Oxygen Flow Rate 0 08/14/21 16:33 Pain Level 0 08/14/21 16:33
== END 2021-08-14 18:40 | disposition home or self-care (01) ==
PROVIDERS: Emergency Provider Student in an Organized Health Care Education/Training Program
DX: T40.411A Poisoning by fentanyl or fentanyl analogs, accidental (unintentional), initial encounter (principal)
CPT/HCPCS: 36416; 82962; 93005; 99284; 93010; 99283